=== PATIENT | female | born 1960 | race Caucasian/White ===

== ENCOUNTER 2017-05-14 10:50 | Emergency (ER) | payer OTHER ==
[2017-05-14] MEDS ORDERED: IBUPROFEN 600 MG TAB PO STA (11:48)
[2017-05-14] MEDS ORDERED: ACETAMINOPHEN TAB 500 MG TAB PO STA (11:48)
[2017-05-14] MEDS ORDERED: cefTRIAXone 1,000 MG VIAL (IM USE) IM STA (11:53)
--- NOTE | 2017-05-14 11:53 | ED ---
General Adult HPI - General Chief complaint: Skin/Abscess/Foreign Body Stated complaint: facial swelling Time Seen by Provider: 05/14/17 11:32 Source: patient, RN notes reviewed Mode of arrival: ambulatory Limitations: no limitations - History of Present Illness Initial comments: 49-year-old female presents to the emergency department with a chief complaint of right-sided facial swelling and drainage. She states this started today that it just keeps getting Bigger and bigger. She states she had drainage yesterday but no drainage today. She denies any history of MRSA. She states that she has not noticed a fever at home. She denies any pain into the neck. She states she is able to open and close the mouth. Patient states she was concerned due to the the pain and the tenderness she thought she should use some antibiotics. Patient denies any significant health history or any history of MRSA in the past.Patient denies any recent shortness of breath, chest pain, back pain, abdominal pain, nausea vomiting, numbness or tingling, dysuria or hematuria, constipation or diarrhea, headaches or visual changes, or any other current symptoms. - Related Data Previous Rx's Medication Instructions Recorded Cephalexin [Keflex] 500 mg PO Q6HR #40 cap 05/14/17 Sulfamethox-Tmp 800-160Mg [Bactrim 2 each PO Q12HR #56 tab 05/14/17 DS 800-160 mg] Allergies Allergy/AdvReac Type Severity Reaction Status Date / Time No Known Allergies Allergy Verified 05/14/17 11:13 Review of Systems ROS Statement: Those systems with pertinent positive or pertinent negative responses have been documented in the HPI. ROS Other: All systems not noted in ROS Statement are negative. Past Medical History Past Medical History: No Reported History History of Any Multi-Drug Resistant Organisms: None Reported Past Surgical History: No Surgical Hx Reported Past Psychological History: No Psychological Hx Reported Smoking Status: Never smoker Past Alcohol Use History: None Reported Past Drug Use History: None Reported General Exam Limitations: no limitations General appearance: alert, in no apparent distress Head exam: Present: other (Patient appears to have redness and swelling to the right cheek. No area of fluctuance. There is some induration and erythema.) Eye exam: Present: normal appearance, PERRL, EOMI. Absent: scleral icterus, conjunctival injection, periorbital swelling ENT exam: Present: normal exam, mucous membranes moist Neck exam: Present: normal inspection. Absent: tenderness, meningismus, lymphadenopathy Respiratory exam: Present: normal lung sounds bilaterally. Absent: respiratory distress, wheezes, rales, rhonchi, stridor Cardiovascular Exam: Present: regular rate, normal rhythm, normal heart sounds. Absent: systolic murmur, diastolic murmur, rubs, gallop, clicks Neurological exam: Present: alert, oriented X3 Psychiatric exam: Present: normal affect, normal mood Skin exam: Present: warm, dry, intact, normal color. Absent: rash Course Vital Signs 05/14/17 10:55 Temperature 100.8 F H Pulse Rate 125 H Respiratory 18 Rate Blood Pressure 208/99 O2 Sat by Pulse 95 Oximetry Medical Decision Making - Medical Decision Making 57-year-old female presents for what appears to right sided facial cellulitis with possible abscess. At this time there is no drainage and no area of fluctuation. We did discuss that the patient does have a low-grade fever with elevated heart rate and we discussed that bad work and IV antibiotics and possible admission would be appropriate for her care. She states that it just started a few days ago she would like to try outpatient antibiotics first she has no significant health history at this time we will respect her wishes. We did discuss the risks of this. We discussed this worsens or changes we did discuss when to return the emergency Department and she promised that she would if any thing worsens or if she feels as if she develops a high fever. At this and we will start her on Keflex and Bactrim for home. There is no active drainage at this time unable to get a wound culture. At this time the patient will be discharged to discussed that there is a good chance that she will require IV antibiotics and admission to the hospital in the future. She states she understood but she would like to try outpatient first. Disposition Clinical Impression: Cellulitis and abscess of face Disposition: HOME SELF-CARE Condition: Stable Instructions: Abscess (ED), Cellulitis (ED) Additional Instructions: Please use medication as discussed. Please follow up with family doctor if symptoms have not improved over the next two days. Please return to the emergency room if your symptoms increase or worsen or for any other concerns. Prescriptions: Cephalexin [Keflex] 500 mg PO Q6HR #40 cap Sulfamethox-Tmp 800-160Mg [Bactrim DS 800-160 mg] 2 each PO Q12HR #56 tab Referrals: Jessica Sorenson MD [REFERRING] - 1-2 days Time of Disposition: 11:53
[2017-05-14] MEDS ORDERED: cloNIDine HCL 0.1 MG TAB PO STA (13:00)
[2017-05-14 13:48] VITALS: BP 167/95; PULSE 78; RESP 16; TEMP 98.9
== END 2017-05-14 13:42 | disposition home or self-care (01) ==
LOC: EC 10:50
DX: L03.211 Cellulitis of face (principal); L02.01 Cutaneous abscess of face
CPT/HCPCS: 99283; 96372; J0696